=== PATIENT | female | born 1960 | race Caucasian/White ===

== ENCOUNTER 2020-12-11 07:40 | Day surgery (SDC) | payer OTHER ==
[~2020-12-11] VITALS: Ht 158.8 cm; Wt 73.9 kg
[2020-12-11] MEDS ORDERED: SIMETHICONE 40 MG/0.6 ML ML ONE (07:49)
[2020-12-11] MEDS ORDERED: MIDAZOLAM HCL 5 MG/5 ML VIAL ONE (07:49)
[2020-12-11] MEDS ORDERED: MEPERIDINE 100 MG INJ. 100 MG/ML VIAL ONE (07:49)
[2020-12-11 14:48] VITALS: BP_SYST 120
== END 2020-12-11 11:35 | disposition home or self-care (01) ==
LOC: SDS 07:40 → SMU 07:40 → SDS 11:35
PROVIDERS: ATTEND Internal Medicine Gastroenterology
DX: R19.8 Other specified symptoms and signs involving the digestive system and abdomen (principal); K63.5 Polyp of colon; K64.8 Other hemorrhoids; Z86.010 Personal history of colon polyps; Z79.899 Other long term (current) drug therapy
CPT/HCPCS: 36415; 45380; 87426; 88305; 99152; 99153; G0378; J2175; J2250